=== PATIENT | male | born 1965 | race Caucasian/White ===

== ENCOUNTER → 2020-05-17 12:56 | Outpatient (CLI) | payer MEDICARE, MEDICAID, SELFPAY ==
[2020-04-05 14:33] VITALS: BMI 25.5
[2020-05-17 13:30] LABS: Albumin, Serum 3.8 g/dL (3.2-5.0); BUN 26 mg/dL (7-18); BUN/Creat Ratio 17.3 RATIO (10-20); Chloride 109 mmol/L (98-107); EST Glomerular Filtration Rate 52 mL/min (>60); Est Glom Filt Rate - Afr Amer 63 mL/min (>60); Glucose 94 mg/dL (74-106); Phosphorus 2.9 mg/dL (2.5-4.9); Potassium 3.6 mmol/L (3.5-5.1); Sodium Level 141 mmol/L (136-145)
== END ==
PROVIDERS: PCP Family Medicine; Visit Provider Internal Medicine Nephrology
DX: N17.9 Acute kidney failure, unspecified (principal)
CPT/HCPCS: 36415; 80069

== ENCOUNTER → 2024-07-11 | Outpatient (CLI) | payer MEDICARE, MEDICAID, SELFPAY ==
--- NOTE | 2024-07-11 18:38 | MRI_ITS ---
STUDY: MRI CERVICAL SPINE WITHOUT CONTRAST REASON FOR EXAM: Male, 58 years old. balance issues, MMRD, seizures TECHNIQUE: Standardized fat and water weighted pulse sequences were obtained in the sagittal and axial planes. COMPARISON: MRI of the brain dated July 11, 2024 FINDINGS: Normal foramen magnum and brainstem-cervical cord junction. Normal craniovertebral junction. Normal anterior atlantoaxial articulation. Normal odontoid process. There is straightening of the normal cervical lordosis. C2-3: Normal endplates. Diffuse disc desiccation with mild disc space narrowing but no significant bulging or herniation of the disc.. Normal central canal and intervertebral neural foramina. C3-4: Diffuse disc desiccation with moderate disc space narrowing and minimal posterior annular bulging contributing to mild central canal stenosis. Moderate bilateral foraminal stenosis with nerve root compression due to uncovertebral facet joint hypertrophy. Normal central canal. C4-5: Moderate disc space narrowing with diffuse disc desiccation and a diffuse disc spur complex causing mild compression anterior aspect of the cord and moderate central canal stenosis. Severe bilateral foraminal stenosis with nerve root compression due to significant uncovertebral hypertrophy. C5-6: Severe disc space narrowing with a diffuse disc osteophyte complex causing compression anterior aspect of the cord and right flank like signal due to compressive myelomalacia in the central aspect of the cord and moderate central canal stenosis. Severe bilateral foraminal stenosis with nerve root compression due to uncovertebral facet joint hypertrophy. C6-7: Severe disc space narrowing with a diffuse disc osteophyte complex causing mild compression anterior aspect of cord and mild to moderate central canal stenosis. Severe bilateral foraminal stenosis with nerve root compression due to combined uncovertebral facet joint hypertrophy. C7-T1: Normal endplates. Normal disc height, signal and morphology. Normal central canal and intervertebral neural foramina. Normal remaining aspects of cervical cord. There is no demonstrated cervical cord demyelinating process. Normal visualized soft tissue structures. MRI/Spine Cervical (Routine) IMPRESSION: 1. Multilevel degenerative changes, as described above. 2. 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
--- NOTE | 2024-07-11 18:38 | MRI_ITS ---
STUDY: MRI BRAIN WITHOUT CONTRAST REASON FOR EXAM: Male, 58 years old. gait disorder; Hx Dandy Walker malformation TECHNIQUE: Standardized multiplanar fat and water weighted pulse sequences were obtained. COMPARISON: None. FINDINGS: Moderate atrophy and areas of encephalomalacia in the bilateral cerebral hemispheres consistent with sequela of prior infarcts versus developmental wade-white migrational abnormalities or cortical dysplasia. 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 There are multiple white matter hyperintensities, distributed throughout the deep white matter tracts of the cerebral hemispheres, consistent with moderate chronic white matter ischemic changes. There is no evidence for recent intracranial ischemia or other cause of cytotoxic edema on diffusion weighted imaging (DWI). Normal T2* images of the brain without demonstrated susceptibility artifact. There is no demonstrated hemosiderin stain. Normal bilateral basal ganglia. Normal thalami. There is no extra-axial fluid accumulation. Normal flow voids within the major intracranial circulation suggesting patency by spin echo criteria. Normal sella turcica, pituitary gland, infundibular stalk, optic chiasm and hypothalamus. Normal tectal plate and pineal gland. Normal midbrain, caron and medulla. Atrophic/hypoplastic cerebellum and small posterior fossa is consistent with known Dandy-Walker''s malformation. No acute abnormality of the cerebellum is present. No demonstrated hydrocephalus or extra-axial fluid collection or midline shift. Normal basal cisterns. Normal bilateral temporal bones. Normal bilateral internal auditory canals. No demonstrated orbital abnormality, within the constraints of a routine brain study. Normal visualized paranasal sinuses. Normal calvarium and skull base. Normal visualized soft tissue structures. Normal visualized upper cervical spine. MRI/Brain without Contrast IMPRESSION: 1. No acute infarct or intracranial hemorrhage. 2. Numerous chronic abnormalities as above. Electronically Signed: Deangelo Macedo MD at 12:37 EDT ,
== END | disposition home or self-care (01) ==
LOC: MRI 08:50
PROVIDERS: PCP Family Medicine; Referring Provider Psychiatry & Neurology Neurology; Visit Provider Psychiatry & Neurology Neurology
DX: G40.919 Epilepsy, unspecified, intractable, without status epilepticus (principal); R26.9 Unspecified abnormalities of gait and mobility
CPT/HCPCS: 70551; 72141